=== PATIENT | female | born 1995 | race Caucasian/White ===

== ENCOUNTER 2023-12-07 10:18 | Inpatient (IN) | payer OTHER ==
[~2023-12-07] VITALS: Ht 157.5 cm; Wt 78.6 kg
[2023-12-07] VITALS (50 sets, daily range): BP systolic 97–175; BP diastolic 55–99; PULSE 60–96; TEMP 97.5–98.5
[2023-12-07] MEDS ORDERED: LR 1,000 ML IV PRN (10:30)
--- NOTE | 2023-12-07 10:30 | NUR ---
PT AMBULATES ONTO THE UNIT WITH RIMA FROM THE CLINIC FOR NST AND LABS.PT DENIES LOF/VB.PT REPORTS IRREGULAR CONTRACTIONS IN THE LOWER ABDOMEN.PT REPORTA POSITIVE AND ACTIVE MOVEMENT.PT ADVISED TO CHANGE INTO GOWN. EFM AND TOCO APPLIED AND TRACING CATEGORY 1. POC REVIEWED WITH PT. PT VERBALIZES UNDERSTANDING.
[2023-12-07] MEDS ORDERED: PRENATAL TABLET PO (10:35)
[2023-12-07 10:43] LABS: BASO % 0.3 % (0.0-2.0); EOS % 0.4 % (0.0-4.0); GRAN # 6.5 K/mm3 (1.4-6.5); HEMOGLOBIN 12.2 g/dl (12.5-16.0); LYMPH # 2.4 K/mm3 (1.2-3.4); MEAN CELL VOLUME 86 fl (80.0-100.0); MEAN CORPUSCULAR HEMOGLOBIN 29 pg (27-31); MEAN CORPUSCULAR HGB CONC 34 g/dl (33.0-37.0); MEAN PLATELET VOLUME 11.2 fl (7.4-10.4); MONO # 1.1 K/mm3 (0.1-0.6); MONO % 10.4 % (1.7-9.3); PLATELET COUNT 214 K/mm3 (130-400); RED BLOOD COUNT 4.18 M/mm3 (4.10-5.30); REDCELL DISTRIBUTION WIDTH-CV 13.2 % (11.5-14.5)
[2023-12-07 11:02] LABS: ALBUMIN 2.7 g/dL (3.5-5.0); BILIRUBIN,TOTAL 0.2 mg/dL (0.2-1.2); CALCIUM 8.9 mg/dL (8.4-10.2); CREATININE, serum 0.74 mg/dL (0.57-1.11); POTASSIUM 3.7 mEq/L (3.5-4.5); TOTAL PROTEIN 6.9 g/dl (6.2-8.1)
[2023-12-07] MEDS ORDERED: LR 1,000 ML IV SCH (11:30)
[2023-12-07] MEDS ORDERED: LR & Oxytocin 500 ML IV SCH (11:30)
--- NOTE | 2023-12-07 13:06 | NUR ---
DR MARTINEZ AT BEDSIDE.ULTRASOUND PERFORMED TO CONFIRM BABY IS VERTEX.SVE /-3 1300 AROM PERFORMED WITH CLEAR FLUID RETURNED.PT TOLERATED PROCEDURE.
[2023-12-07] MEDS ORDERED: ROPivacaine PF 0.2% 200 ML IV ONE (14:44)
--- NOTE | 2023-12-07 15:08 | NUR ---
PT SITTING UP ON THE SIDE OF THE BED OF THE BED FOR EPIDURAL PLACEMENT. LR BOLUS INFUSING PER PROTOCOL.BP AND PULSE OX TRACING EVERY FIVE MINUTES.DIFFICULTY TRACING EFM AND TOCO DUE TO MATERNAL POSITIONING. 1459 TEST DOSE ADMINISTERED PER HAKAN REINA.PT TOLERATED PROCEDURE WELL.
[2023-12-07] MEDS ORDERED: Ondansetron 4 MG/2 ML VIAL IV PRN (15:15)
[2023-12-07] MEDS ORDERED: Naloxone 0.4 MG/ML VIAL IV PRN (15:15)
[2023-12-07] MEDS ORDERED: ePHEDrine 50 MG/10 ML VIAL IV PRN (15:15)
[2023-12-07] MEDS ORDERED: diphenhydrAMINE 50 MG/ML 1 ML VIAL IV PRN (15:15)
[2023-12-07] MEDS ORDERED: diphenhydrAMINE 25 MG CAP PO PRN (15:15)
--- NOTE | 2023-12-07 18:35 | NUR ---
1835-DISCUSSED CONCTRACTION CLUSTERS/BABY POSITIONING. AGREES TO POSITION CHANGES TO TRY AND GET BABY TO ROTATE AND DESCEND. PT MOVED TO LT RUNNERS POSITION.
--- NOTE | 2023-12-07 18:59 | NUR ---
PT MOVED TO HANDS AND KNEES POSITION LEANING OVER LABOR BALL. TOLERATED POSITIONING WELL.
--- NOTE | 2023-12-07 19:30 | NUR ---
PT MOVED TO RT RUNNERS POSITION. HAVING SOME PAIN, MORE ON LEFT SIDE AT THIS TIME. REVIEWED USE OF EPIDURAL BUTTON AND PT PUSHED BUTTON.
--- NOTE | 2023-12-07 20:00 | NUR ---
PT WITH INCREASING PAIN ON LEFT SIDE. PT TURNED TO LEFT. HAS PUSHED EPIDURAL BUTTON TWICE. PUSHED AGAIN AT THIS TIME. WILL CALL [employer]ATION OPERATOR IF NO RELIEF.
[2023-12-07] MEDS ORDERED: NS 10 ML IV ONE (20:24)
--- NOTE | 2023-12-07 20:30 | NUR ---
HYDRAULIC MODELING ENGINEER AT BEDSIDE. 2032-EPIDURAL DOSE PER HYDRAULIC MODELING ENGINEER
--- NOTE | 2023-12-07 21:16 | NUR ---
PT NOW COMFORTABLE. PT REMAINS ON LEFT SIDE, CHANGED TO FLYING COWGIRL WITH LARGE PEANUT BALL.
--- NOTE | 2023-12-07 21:53 | NUR ---
SVE NO CHANGE. SOME MOLDING PALPATED. PT PLACED IN WALCHER'S POSITION WITH BOTTOM OF BED LOWERED LEGS DANGLING. PT UNABLE TO TOLERATE AND FELT DIZZY AND NAUSEATED AFTER A FEW MINUTES. 2156- PT MOVED TO RIGHT SIDE. 2203-PT FEELING BETTER. CHANGED TO RT FLYING [employer]OW[employer]RL WITH PEANUT BALL
--- NOTE | 2023-12-07 23:00 | NUR ---
PT WITH EARLY AND SOME LATE FHR DECELS. PT PLACED IN [facility].
--- NOTE | 2023-12-07 23:30 | NUR ---
CONTRACTION PATTERN IS CLUSTERING. FHR DECELS EARLY AND SOME LATE.
[2023-12-08] VITALS (27 sets, daily range): BP systolic 108–143; BP diastolic 57–99; PULSE 60–116; TEMP 98–98.7
--- NOTE | 2023-12-08 | NUR ---
0004-SVE SMALL CHANGE. PT MOVED TO LT LATERAL WITH RT LEG IN STIRRUP. CLUSTERING OF CONTRACTIONS. 0010-RN HAS REMAINED AT BEDSIDE. FHR DECEL WITH POSITION CHANGE TO 90'S-100'S. PT MOVED TO RT LATERAL WITH IMPROVEMENT IN FHR.
--- NOTE | 2023-12-08 00:20 | NUR ---
REMAINS ON RT SIDE. LEFT LEG PLACED IN STIRRUP
--- NOTE | 2023-12-08 00:45 | NUR ---
CLUSTERING OF CTX. EARLY AND LATE FHR DECELERATIONS.
--- NOTE | 2023-12-08 01:30 | NUR ---
PT C/O PAIN ON HER LEFT SIDE AGAIN. PRESSED EPIDURAL BUTTON TWICE. TURNED TO RT SIDE PER HER REQUEST. WILL NOTIFY LAB DIRECTOR. 0150-MD TO ROOM. SVE GOOD PROGRESS. 0158-HAKAN AT BEDSIDE TO DOSE EPIDURAL. PT TURNED TO LEFT SIDE.
[2023-12-08] MEDS ORDERED: NS 10 ML IV ONE (01:55)
[2023-12-08] MEDS ORDERED: Lidocaine PF 2% (20 MG/ML) 5 ML VIAL ONE (01:55)
--- NOTE | 2023-12-08 02:00 | NUR ---
DIFFICULT TRACING FHR. NURSE REMAINS AT BEDSIDE ADJUSTING MONITOR.
--- NOTE | 2023-12-08 03:13 | NUR ---
PUSHING WITH CONTRACTIONS. NURSE REMAINS AT BEDSIDE DURING PUSHING, MONITORING FHR CONTINUOUSLY. PT WITH EMESIS OFF AND ON DURING PUSHING
--- NOTE | 2023-12-08 03:36 | NUR ---
MAKING GOOD PROGRESS WITH PUSHING. FHR MONITORED CONTINOUSLY, EFM FREQUENTLY ADJUSTED. MD ARRIVES AT BEDSIDE. PT PREPPED FOR DELIVERY. 0343-. PITOCIN OFF 347-PLACENTA DELIVERED INTACT. 348-PITOCIN BOLUS STARTED
--- NOTE | 2023-12-08 03:52 | NUR ---
MD REPAIRING LACERATION. FUNDAL MASSAGED TO FIRM, BRISK FLOW RESOLVED WITH MASSAGE.
[2023-12-08] MEDS ORDERED: Magnes Hydrox (MOM) 80 MG/ML 30 ML CUP PO PRN (04:15)
[2023-12-08] MEDS ORDERED: Loratadine 10 MG TAB PO PRN (04:15)
--- NOTE | 2023-12-08 05:25 | NUR ---
PT UP TO BATHROOM WITH ASSIST. TOLERTED WELL. VOIDED WITHOUT DIFFICULTY. PERICARE DONE AND INSTRUCTION GIVEN.
[2023-12-08] MEDS ORDERED: Ibuprofen 600 MG TAB PO SCH (05:30)
[2023-12-08] MEDS ORDERED: Naloxone 0.4 MG/ML VIAL IV PRN (05:30)
[2023-12-08] MEDS ORDERED: Phenylephrine/Mineral Oil/Petrolatum 57 GM TUBE RC PRN (05:30)
[2023-12-08] MEDS ORDERED: Mag/Al Hydrox/Simeth Susp 30 ML CUP PO PRN (05:30)
[2023-12-08] MEDS ORDERED: Witch Hazel 50% Pads Bulk TUB TP PRN (05:30)
[2023-12-08] MEDS ORDERED: Acetaminophen 500 MG TAB PO SCH (05:30)
[2023-12-08] MEDS ORDERED: oxyCODONE 5 MG TAB PO PRN (05:30)
[2023-12-08] MEDS ORDERED: Measles/Mumps/Rubella Virus Vaccine Live w Diluent 0.5 ML VIAL SQ SCH (05:30)
[2023-12-08] MEDS ORDERED: Sennosides/Docusate 8.6-50 MG TAB PO SCH (08:00)
[2023-12-08] MEDS ORDERED: Prenatal Vitamins/Iron/FA TAB PO SCH (09:00)
[2023-12-08] MEDS ORDERED: Rho(D) Imm Globulin 1,500 UNITS (300 MCG)/2 ML SYRINGE IV\\IM SCH (11:00)
[2023-12-08] MEDS ORDERED: IBU600 MG PO (11:46)
[2023-12-08] MEDS ORDERED: TYLENOL 500MG500 MG PO (11:47)
--- NOTE | 2023-12-08 15:49 | NUR ---
1330 PT CARE ASSUMED BY ALESSANDRO HUTCHISON AT THIS TIME.
[2023-12-08] MEDS ORDERED: traZODone 50 MG TAB PO PRN (21:00)
[2023-12-09 01:00] VITALS: BP 126/93; PULSE 84; TEMP 98.5
[2023-12-09 07:00] VITALS: BP 116/78; PULSE 85; TEMP 98.6
== END 2023-12-09 12:00 | disposition home or self-care (01) | DRG 807 ==
LOC: LDRO 10:18 → LDR 11:00 → OB 12-08 06:15
PROVIDERS: ADMIT Obstetrics & Gynecology
PROC: 10E0XZZ Delivery of Products of Conception, External Approach (ICD-10-PCS; principal; 2023-12-08)
PROC: 0KQM0ZZ Repair Perineum Muscle, Open Approach (ICD-10-PCS; 2023-12-08)
PROC: 3E0P7VZ Introduction of Hormone into Female Reproductive, Via Natural or Artificial Opening (ICD-10-PCS; 2023-12-08)
DX: O13.4 Gestational [pregnancy-induced] hypertension without significant proteinuria, complicating childbirth (principal); Z37.0 Single live birth; O48.0 Post-term pregnancy; Z3A.40 40 weeks gestation of pregnancy; O70.1 Second degree perineal laceration during delivery; O69.81X0 Labor and delivery complicated by cord around neck, without compression, not applicable or unspecified; O26.893 Other specified pregnancy related conditions, third trimester
CPT/HCPCS: J2405; J2590; J2791; J2795; J7120